=== PATIENT | male | born 1995 | race African-American/Black ===

== ENCOUNTER 2017-04-11 09:21 | Emergency (ER) | payer SELFPAY ==
[2017-04-11] MEDS ORDERED: Bicillin LA 1.2 MILLION UNITS/2 ML SYRINGE ONE (10:04)
[2017-04-11] MEDS ORDERED: Dexamethasone 4 MG TAB ONE (10:04)
== END 2017-04-11 10:39 | disposition home or self-care (01) ==
LOC: ERS 09:21
DX: J02.0 Streptococcal pharyngitis (principal)
CPT/HCPCS: 96372; J0561; J8540